=== PATIENT | female | born 1960 | race Caucasian/White ===

== ENCOUNTER → 2016-12-17 | Outpatient (CLI) | payer OTHER ==
[~2016-12-17] MED LIST: AMB10 PO; ASPEC81 PO; CETI10TA84 PO; CIPR-255 PO; ESTR2TAB PO; FENT25DI2 TD; FLX10 PO; HYG/25 PO; HYOS1TAB PO; ISOS30TA3 PO; ISOS60TA25 PO; LOSA1TAB38 PO; METO50TA16 PO; METO50TA17 PO; NTRGSL/4 UT; OMEP40CA PO; OMEP40CA41 PO; OXYC-57 PO; PANC6000 PO; PLV75 PO; POTA20TA13 PO; POTA20TA16 PO; RANI300T2 PO; ROSU20TA PO; ROSU40TA PO; ZOLP5TAB6 PO
[2016-12-17 14:26] LABS: BASO % 0.3 %; BASO ABS # 0.02 K/uL (0-0.2); COMPLETE YES; EOS % 2.2 %; HEMATOCRIT 36.4 % (37-47); IG% 0.3 %; LYMPH % 30.8 %; LYMPH ABS # 2.21 K/uL (1.2-3.4); MEAN CELL VOLUME 88.3 fL (80-100); MEAN CORPUSCULAR HEMOGLOBIN 30.1 pg (25-34); MEAN CORPUSCULAR HGB CONC 34.1 g/dl (32-36); MONO % 5.2 %; NEUT % 61.2 %; PLATELET COUNT 280 K/uL (130-400); RED BLOOD COUNT 4.12 M/uL (4.2-5.4); WHITE BLOOD COUNT 7.18 K/uL (4.8-10.8)
[2016-12-17 14:44] LABS: ALT/SGPT 18 U/L (12-78); AST/SGOT 10 U/L (15-37); BLOOD UREA NITROGEN 17 mg/dl (7-18); BUN/CREATININE RATIO 14.2 (10-20); C-REACTIVE PROTEIN 1.09 mg/dl (0-0.29); CALCIUM 8.8 mg/dl (8.5-10.1); CARBON DIOXIDE 27 mmol/L (21-32); CHLORIDE 102 mmol/L (98-107); GLUCOSE 87 mg/dl (70-99); POTASSIUM 3.5 mmol/L (3.5-5.1); SODIUM 139 mmol/L (136-145)
[2016-12-17 14:48] LABS: ALKALINE PHOSPHATASE 72 U/L (45-117)
[2016-12-21 23:31] LABS: IGA SERUM 219 mg/dL (81-463); TIS TRANS IGA 1 U/mL (<4)
== END | disposition home or self-care (01) ==
LOC: C.LAB 12:35
PROVIDERS: ATTEND Internal Medicine
DX: J38.7 Other diseases of larynx (principal)

== ENCOUNTER 2017-01-04 16:52 | Emergency (ER) | payer OTHER ==
[~2017-01-04] VITALS: Ht 167.6 cm; Wt 70.0 kg
[~2017-01-04 16:52] MED LIST changes: -CETI10TA84 PO; -CIPR-255 PO; -HYOS1TAB PO; -ISOS60TA25 PO; -METO50TA16 PO; -NTRGSL/4 UT; -OMEP40CA41 PO; -OXYC-57 PO; -POTA20TA13 PO; -POTA20TA16 PO; -ROSU20TA PO; -ZOLP5TAB6 PO
[2017-01-04 16:57] VITALS: TEMP 37.2; Ht 167.6 cm; Wt 70.0 kg
[2017-01-04] MEDS ORDERED: SODIUM CHLORIDE 0.9% 1000ML 1,000 ML IV STA (18:51)
[2017-01-04 19:20] LABS: BASO % 0.3 %; BASO ABS # 0.02 K/uL (0-0.2); COMPLETE YES; EOS % 1.8 %; HEMATOCRIT 35.2 % (37-47); IG% 0.1 %; LYMPH % 29.8 %; LYMPH ABS # 2.29 K/uL (1.2-3.4); MEAN CELL VOLUME 85.6 fL (80-100); MEAN CORPUSCULAR HEMOGLOBIN 30.2 pg (25-34); MEAN CORPUSCULAR HGB CONC 35.2 g/dl (32-36); MEAN PLATELET VOLUME 9.3 fL (7.4-10.4); MONO % 8.5 %; NEUT % 59.5 %; PLATELET COUNT 272 K/uL (130-400); RED BLOOD COUNT 4.11 M/uL (4.2-5.4); WHITE BLOOD COUNT 7.69 K/uL (4.8-10.8)
[2017-01-04 19:37] LABS: ALT/SGPT 14 U/L (12-78); BLOOD UREA NITROGEN 22 mg/dl (7-18); BUN/CREATININE RATIO 16.8 (10-20); CALCIUM 9.1 mg/dl (8.5-10.1); CARBON DIOXIDE 28 mmol/L (21-32); CHLORIDE 98 mmol/L (98-107); GLUCOSE 91 mg/dl (70-99); MAGNESIUM 1.9 mg/dl (1.8-2.4); POTASSIUM 2.7 mmol/L (3.5-5.1); SODIUM 137 mmol/L (136-145)
[2017-01-04 19:40] LABS: ALKALINE PHOSPHATASE 80 U/L (45-117); AST/SGOT 12 U/L (15-37)
[2017-01-04] MEDS ORDERED: METO50TA16 PO (19:45)
[2017-01-04] MEDS ORDERED: ISOS60TA25 PO (19:45)
[2017-01-04] MEDS ORDERED: NTRGSL/4 UT (19:45)
[2017-01-04] MEDS ORDERED: OMEP40CA41 PO (19:45)
[2017-01-04] MEDS ORDERED: HYOS1TAB PO (19:45)
[2017-01-04] MEDS ORDERED: CETI10TA84 PO (19:45)
[2017-01-04] MEDS ORDERED: ZOLP5TAB6 PO (19:45)
[2017-01-04] MEDS ORDERED: ROSU20TA PO (19:45)
[2017-01-04 20:01] LABS: URINE APPEARANCE CLOUDY (CLEAR); URINE BILIRUBIN NEG (NEG); URINE COLOR YELLOW; URINE EPITHELIAL CELL AUTO >30 /lpf (0-5); URINE NITRITE POS (NEG); URINE SPECIFIC GRAVITY 1.019 (1.000-1.030); UROBILINOGEN NEG (NEG); ZZUR CULT IF INDIC CLEAN CATCH YES
[2017-01-04 20:08] LABS: MANUAL MICROSCOPIC REQUIRED? NO; REVIEW REQ? NO
--- NOTE | 2017-01-04 20:17 | DIAGNOSTIC IMAGING REPORT ---
CT SCAN OF THE ABDOMEN AND PELVIS WITHOUT CONTRAST CLINICAL HISTORY: Lower abdominal pain, diarrhea, nausea. COMPARISON STUDY: 03/19/2008 TECHNIQUE: CT scan of the abdomen and pelvis was performed from the lung bases to the proximal femurs. Images are reviewed in the axial, sagittal, and coronal planes. IV contrast was not administered for this examination. CT DOSE: 278.78 mGy.cm FINDINGS: Lower chest: There is subtle interstitial thickening. There is no focal pulmonary consolidation. Liver: The unenhanced liver is normal in size, contour, and attenuation. There is no intrahepatic biliary ductal dilatation. Gallbladder: Surgically absent Spleen: Normal in size and attenuation. Pancreas: Unremarkable. Adrenal glands: Unremarkable. Kidneys: No renal, ureteral, or bladder calculi are visualized. Bowel: There are no transition zones indicate bowel obstruction. There is no evidence of acute diverticulitis. Peritoneum: There is no intraperitoneal free air or abdominal ascites. Vasculature: The abdominal aorta is normal in course and caliber. Adenopathy: None. Pelvic viscera: There is a 6 cm right adnexal soft tissue structure possibly representing a right ovarian mass. I do not with certainty identify a uterus. Please correlate with any surgical history of prior hysterectomy. Skeletal structures: No destructive osseous lesions are seen. IMPRESSION: 1. No evidence of bowel obstruction. No evidence of free air. 2. 6 cm right adnexal soft tissue structure. This does not have the typical appearance of the uterus and may represent a right ovarian mass. Clinical correlation with any history of prior gynecological surgery (does this patient have a history of hysterectomy?) is recommended. Pelvic ultrasonography should be considered in follow-up. Electronically signed by: Michael Fowler M.D. 01/04/2017 8:15 PM Dictated Date/Time: 01/04/2017 8:08 PM
[2017-01-04] MEDS ORDERED: CIPROFLOXACIN 500 MG TAB PO STA ×2 (21:43)
[2017-01-04] MEDS ORDERED: POTASSIUM CHLORIDE 10 MEQ TABCR PO STA (21:43)
[2017-01-04] MEDS ORDERED: CIPR-255 PO (21:48)
[2017-01-04] MEDS ORDERED: POTA20TA13 PO (21:48)
[2017-01-04 21:55] VITALS: BP 149/79; PULSE 78; O2SAT 96
--- NOTE | 2017-01-05 02:26 | EMERGENCY ROOM VISIT NOTE ---
History Report prepared by Antonio: Lilly Kilgore Under the Supervision of: Dr. Layton Starr M.D. First contact with patient: 18:50 Chief Complaint: DEHYDRATION Stated Complaint: DIARRHEA, CRAMPING, WEAKNESS Nursing Triage Summary: Pt states, "For the past 6 weeks I have been having problems with my irritable bowel and reflux. I went and saw Dr. Glass and he changed some of my meds. Yesterday my bowel movements started getting more formed. I have had problems in the past with low potassium and that's what I feel like. I had three stents put in my heart over the summer and had low potassium in April and was hospitalized. If I lay down I can feel my heart pounding in my ears." Lower abd cramping. History of Present Illness The patient is a 56 year old female who presents to the Emergency Room with complaints of constant lower abdominal cramping beginning 4 days ago. The patient reports that she has been having problems with her IBS for 4 days and went to the bathroom 5 times in one day but they have been less frequent over the last few days. She notes that these bowel movements worsen her abdominal cramping. The patient states that today she has weakness, muscle cramping, intermittent nausea, fever, chills, and a mild headache. The patient reports that this has happened to her before when her potassium was low. She notes that she was admitted in April for pneumonia and low potassium and states that she also has a history of heart attacks. The patient states that she has not been eating much because she does not want to go to the bathroom but has been drinking liquids. She reports that she has not had any recent abdominal imaging done but had blood work a few weeks ago that was fine but they suggested a colonoscopy. Pt denies LOC, diaphoresis, visual changes, neck pain, chest pain, breathing difficulties, vomiting, back pain, melena, hematochezia, urinary symptoms, numbness, lymphadenopathy, rash, or other complaints. She rates her cramping as a 5/10 in severity. Source of History: patient Onset: 4 days ago Position: abdomen (lower) Symptom Intensity: 5/10 Quality: cramping Timing: constant Modifying Factors (Worsening): other (going to the bathroom) Review of Systems See HPI for pertinent positives and negatives. A total of ten systems were reviewed and were otherwise negative. Past Medical & Surgical Medical Problems: (1) Abnormal EKG (2) Abnormal stress ECG with treadmill (3) CAD (coronary artery disease) (4) Claudication (5) Claudication in peripheral vascular disease (6) Fibromyalgia (7) Gastritis (8) HTN (hypertension) (9) Pancreatitis Family History Asthma Hypertension Kidney disease Social History Smoking Status: Current Every Day Smoker Drug Use: none Housing Status: lives with family Occupation Status: employed Current/Historical Medications Scheduled Aspirin (Aspirin EC Low Dose), 81 MG PO QAM Chlorthalidone (Hygroton), 25 MG PO QPM Ciprofloxacin Hcl (Cipro), 500 MG PO BID Clopidogrel Bisulfate (Clopidogrel), 75 MG PO QAM Estradiol (Estradiol), 1 TAB PO QPM Isosorbide Mononitrate Ext Rel (Imdur Ext Rel), 60 MG PO QAM Losartan Potassium (Cozaar), 1 TAB PO DAILY Metoprolol Tartrate (Lopressor) (Lopressor), 50 MG PO BID Nitroglycerin (Nitrostat), 0.4 MG UT PRN Omeprazole (Prilosec), 40 MG PO BID Pancrelipase (Lipase-Protease- (Creon), 76,000 UNITS PO AC Potassium Chloride Microencaps (Potassium Chloride Er), 1 TAB PO DAILY Ranitidine Hcl (Zantac), 300 MG PO HS Rosuvastatin Calcium (Crestor), 20 MG PO DAILY Scheduled PRN Cetirizine (Zyrtec), 10 MG PO DAILY PRN for ALLERGIC REACTION Fentanyl (Duragesic), 25 MCG TD [id number] PRN for PANCREATITIS FLARES Hyoscyamine Sulfate (Levsin), 0.125 MG PO QID PRN for Zolpidem Tartrate (Zolpidem Tartrate), 1 TAB PO HS PRN for Sleep Allergies Coded Allergies: Iodinated Diagnostic Agents (Verified Allergy, Unknown, BLOOD BLISTERS IN AREA OF INJECTION, 04/30/16) Physical Exam Vital Signs Date Time Temp Pulse Resp B/P Pulse Ox O2 Delivery O2 Flow Rate FiO2 01/04/17 21:55 78 16 149/79 96 01/04/17 21:16 72 16 127/78 96 Room Air 01/04/17 20:27 69 01/04/17 19:39 65 16 133/66 96 Room Air 01/04/17 16:57 37.2 77 18 151/80 97 Room Air Physical Exam GENERAL: Awake, alert, well-appearing, in no distress HENT: Normocephalic, atraumatic. Oropharynx unremarkable. EYES: Normal conjunctiva. Sclera non-icteric. NECK: Supple. No nuchal rigidity. FROM. No JVD. RESPIRATORY: Clear to auscultation. CARDIAC: Regular rate, normal rhythm. Extremities warm and well perfused. Pulses equal. ABDOMEN: Soft, non-distended. Lower abdominal tenderness. No rebound or guarding. No masses. RECTAL: Deferred. MUSCULOSKELETAL: Chest examination reveals no tenderness. The back is symmetrical on inspection without obvious abnormality. There is no CVA tenderness to palpation. No joint edema. LOWER EXTREMITIES: Calves are equal size bilaterally and non-tender. No edema. No discoloration. NEURO: Normal sensorium. No sensory or motor deficits noted. SKIN: No rash or jaundice noted. Medical Decision & Procedures ER Provider Diagnostic Interpretation: CT results as stated below per my review and radiologist interpretation CT SCAN OF THE ABDOMEN AND PELVIS WITHOUT CONTRAST TECHNIQUE: CT scan of the abdomen and pelvis was performed from the lung bases to the proximal femurs. Images are reviewed in the axial, sagittal, and coronal planes. IV contrast was not administered for this examination. CT DOSE: 278.78 mGy.cm FINDINGS: Lower chest: There is subtle interstitial thickening. There is no focal pulmonary consolidation. Liver: The unenhanced liver is normal in size, contour, and attenuation. There is no intrahepatic biliary ductal dilatation. Gallbladder: Surgically absent Spleen: Normal in size and attenuation. Pancreas: Unremarkable. Adrenal glands: Unremarkable. Kidneys: No renal, ureteral, or bladder calculi are visualized. Bowel: There are no transition zones indicate bowel obstruction. There is no evidence of acute diverticulitis. Peritoneum: There is no intraperitoneal free air or abdominal ascites. Vasculature: The abdominal aorta is normal in course and caliber. Adenopathy: None. Pelvic viscera: There is a 6 cm right adnexal soft tissue structure possibly representing a right ovarian mass. I do not with certainty identify a uterus. Please correlate with any surgical history of prior hysterectomy. Skeletal structures: No destructive osseous lesions are seen. IMPRESSION: 1. No evidence of bowel obstruction. No evidence of free air. 2. 6 cm right adnexal soft tissue structure. This does not have the typical appearance of the uterus and may represent a right ovarian mass. Clinical correlation with any history of prior gynecological surgery (does this patient have a history of hysterectomy?) is recommended. Pelvic ultrasonography should be considered in follow-up. Electronically signed by: Michael Fowler M.D. 01/04/2017 8:15 PM Dictated Date/Time: 01/04/2017 8:08 PM Laboratory Results 01/04/17 19:10 Red Blood Count 4.11, Mean Corpuscular Volume 85.6, Mean Corpuscular Hemoglobin 30.2, Mean Corpuscular Hemoglobin Concent 35.2, Mean Platelet Volume 9.3, Neutrophils (%) (Auto) 59.5, Lymphocytes (%) (Auto) 29.8, Monocytes (%) (Auto) 8.5, Eosinophils (%) (Auto) 1.8, Basophils (%) (Auto) 0.3, Neutrophils # (Auto) 4.58, Lymphocytes # (Auto) 2.29, Monocytes # (Auto) 0.65, Eosinophils # (Auto) 0.14, Basophils # (Auto) 0.02 01/04/17 19:10 Test 01/04/17 19:10 01/04/17 19:45 White Blood Count 7.69 K/uL (4.8-10.8) Red Blood Count 4.11 M/uL (4.2-5.4) Hemoglobin 12.4 g/dL (12.0-16.0) Hematocrit 35.2 % (37-47) Mean Corpuscular Volume 85.6 fL (80-100) Mean Corpuscular Hemoglobin 30.2 pg (25-34) Mean Corpuscular Hemoglobin Concent 35.2 g/dl (32-36) Platelet Count 272 K/uL (130-400) Mean Platelet Volume 9.3 fL (7.4-10.4) Neutrophils (%) (Auto) 59.5 % Lymphocytes (%) (Auto) 29.8 % Monocytes (%) (Auto) 8.5 % Eosinophils (%) (Auto) 1.8 % Basophils (%) (Auto) 0.3 % Neutrophils # (Auto) 4.58 K/uL (1.4-6.5) Lymphocytes # (Auto) 2.29 K/uL (1.2-3.4) Monocytes # (Auto) 0.65 K/uL (0.11-0.59) Eosinophils # (Auto) 0.14 K/uL (0-0.5) Basophils # (Auto) 0.02 K/uL (0-0.2) RDW Standard Deviation 40.1 fL (36.4-46.3) RDW Coefficient of Variation 12.7 % (11.5-14.5) Immature Granulocyte % (Auto) 0.1 % Immature Granulocyte # (Auto) 0.01 K/uL (0.00-0.02) Anion Gap 11.0 mmol/L (3-11) Est Creatinine Clear Calc Drug Dose 44.7 ml/min Estimated GFR () 52.7 Estimated GFR (Non- 45.5 BUN/Creatinine Ratio 16.8 (10-20) Calcium Level 9.1 mg/dl (8.5-10.1) Magnesium Level 1.9 mg/dl (1.8-2.4) Total Bilirubin 0.3 mg/dl (0.2-1) Direct Bilirubin < 0.1 mg/dl (0-0.2) Aspartate Amino Transf (AST/SGOT) 12 U/L (15-37) Alanine Aminotransferase (ALT/SGPT) 14 U/L (12-78) Alkaline Phosphatase 80 U/L (45-117) Total Protein 7.8 gm/dl (6.4-8.2) Albumin 3.6 gm/dl (3.4-5.0) Lipase 608 U/L (73-393) Urine Color YELLOW Urine Appearance CLOUDY (CLEAR) Urine pH 6.0 (4.5-7.5) Urine Specific Saline 1.019 (1.000-1.030) Urine Protein NEG (NEG) Urine Glucose (UA) NEG (NEG) Urine Ketones NEG (NEG) Urine Occult Blood NEG (NEG) Urine Nitrite POS (NEG) Urine Bilirubin NEG (NEG) Urine Urobilinogen NEG (NEG) Urine Leukocyte Esterase SMALL (NEG) Urine WBC (Auto) 10-30 /hpf (0-5) Urine RBC (Auto) 0-4 /hpf (0-4) Urine Hyaline Casts (Auto) 1-5 /lpf (0-5) Urine Epithelial Cells (Auto) >30 /lpf (0-5) Urine Bacteria (Auto) 4+ (NEG) Urine Test NEG (NEG) Laboratory results reviewed by me Medications Administered Medications (Trade) Dose Ordered Sig/[facility] Route Start Time Stop Time Status Last Admin Dose Admin Sodium Chloride (Nss 1000ml) 1,000 ml @ 999 mls/hr Q1H1M STAT IV 01/04/17 18:51 01/04/17 19:51 DC 01/04/17 19:30 999 MLS/HR Potassium Chloride (Klor-Con M10) 40 meq NOW STAT PO 01/04/17 21:43 01/04/17 21:45 DC 01/04/17 21:55 40 MEQ Ciprofloxacin (Cipro Tab) 500 mg NOW STAT PO 01/04/17 21:43 01/04/17 21:45 DC 01/04/17 21:55 500 MG Ciprofloxacin (Cipro Tab) 500 mg NOW STAT PO 01/04/17 21:43 01/04/17 21:45 DC 01/04/17 21:55 500 MG ECG Indication: weakness Rate (beats per minute): 64 Rhythm: normal sinus Findings: nonspecific-ST abn, no acute ischemic change, no ectopy, other (poor R wave progression) ED Course 1849: The patient was evaluated in room C11. A complete history and physical exam was performed. 1850: Sodium Chloride 1000 ml @ 999 mls/hr IV. 2142: Cipro Tab 500mg PO, Cipro Tab 500mg PO, Klor-Con M10 40meq PO. 2152: I reevaluated the patient. Discussed results and discharge instructions: She verbalized understanding and agreement. The patient is ready for discharge. Medical Decision Triage Nursing notes reviewed. The patient's presentation and history were concerning for abdominal pain, diarrhea and history of hypokalemia. Etiologies such as electrolyte abnormality, dehydration, appendicitis, diverticulitis, obstruction, inflammatory bowel disease, renal colic, PUD, biliary pathology, pancreatitis, mesenteric ischemia, aortic pathology, infections, genitourinary, UTI, perforated viscus, as well as others were entertained. The patient was evaluated. She declined analgesia. She was hydrated with normal saline. Blood work was obtained. Urinalysis obtained. The patient was sent to CT imaging for further analysis. ECG was unremarkable as above. The patient has hypokalemia and a UTI on blood work. Imaging reveals no evidence of bowel obstruction or colitis. No diverticulitis. The patient does have a right-sided pelvic mass. She does not have a significant amount of tenderness in this area but did have more tenderness on the left side. I believe this is an incidental finding that will need further evaluation. I did offer an ultrasound the patient wants to follow-up for this. The patient was given oral potassium. She will be prescribed potassium and I will have her continue this for 5 days and then have it rechecked. If she needs more potassium I did write for additional however she needs to have it rechecked before she continues. The patient will be prescribed Cipro pending her culture. The patient is feeling much better on reassessment and feels very comfortable with outpatient management. If she worsens in any way she will come back to the Emergency Room for reevaluation.I gave my usual and customary discussion regarding this issue. By the evaluation outlined above other emergent etiologies such as those listed in the differential, as well as others, were deemed relatively unlikely. The patient and were informed about the findings as listed above. All questions were answered and they were very pleased with the treatment. Return instructions were outlined and the patient was discharged in stable condition. The patient was referred to her PCP and INSPECTING MACHINE ADJUSTER for follow-up this week for a recheck of the current condition. The chart was completed utilizing [employer] Speech voice recognition software. Grammatical errors, random word insertions, pronoun errors, and incomplete sentences are an occasional consequence of this system due to software limitations, ambient noise, and hardware issues. Any formal questions or concerns about the content, text, or information contained within the body of this dictation should be directly addressed to the physician for clarification. Impression Primary Impression: Hypokalemia Additional Impressions: UTI (urinary tract infection) Pelvic mass Scribe Attestation The scribe's documentation has been prepared under my direction and personally reviewed by me in its entirety. I confirm that the note above accurately reflects all work, treatment, procedures, and medical decision making performed by me. Departure Information Dispostion Home / Self-Care Prescriptions Potassium Chloride Microencaps (POTASSIUM CHLORIDE ER) 20 Meq Tab 1 TAB PO DAILY, #10 TAB Prov: Layton Starr MD 01/04/17 Ciprofloxacin Hcl (CIPRO) 500 Mg Tab 500 MG PO BID, #8 TAB Prov: Layton Starr MD 01/04/17 Referrals Ucadra, Real T., D.O.Int.Med. (PCP) Forms HOME CARE DOCUMENTATION FORM, IMPORTANT VISIT INFORMATION, WORK / SCHOOL INSTRUCTIONS Patient Instructions My [facility] Additional Instructions Diagnosis: 1. Hypokalemia 2. UTI 3. Right sided pelvic mass Potassium 20 mEq daily for 5 days. Have your potassium rechecked this week. this may need to be continued for another 5 days but your primary physician needs to direct this. Ciprofloxacin(Cipro) 500mg: Take one pill twice daily for 5 days for your urine infection. All antibiotics can cause diarrhea. If this occurs and you feel worse or it does not resolve in 1-2 days follow up with your doctor or return to the Emergency Department as this could be signs of serious underlying problems. If you experience any pain in your tendons or any tendon injury return to the ER for re-evaluation. Any medication can cause an allergic reaction, stop the pills immediately and return to the ER for rash, hives, breathing difficulties, or swelling. Ibuprofen(Motrin, Advil) may be used for fever or pain. Use 600mg every six hours as needed. Take with food. Avoid using more than 2400mg in a 24 hour period. Do not use 2400mg per day for more than three consecutive days without physician direction. Prolonged inappropriate use can lead to stomach upset or ulcers. (AND/OR) Acetaminophen(Tylenol) may be used for fever or pain. Use 1000mg every six hours as needed. Avoid using more than 4000mg in a 24 hour period. Rest and drink plenty of fluids. Continue current medications. Return to the ER immediately for worsening or persistent abdominal pain, vomiting, fevers, back or flank pain, worsening of your condition, or as needed. Follow up with your primary physician within 2-3 days for a recheck of the current condition. Follow-up with [facility] INSPECTING MACHINE ADJUSTER as discussed. The number is listed below under Dr. Leo. Problem Qualifiers
--- NOTE | 2017-01-06 11:55 | Pharmacy Progress Note ---
ED Pharmacist Culture FollowUp Date of Service: Jan 06, 2017. Patient was sent home with a prescription for ciprofloxacin, which should cover the E.coli growing from the patient's urine culture.
[2017-02-11] MEDS ORDERED: POTA20TA16 PO (11:25)
[2017-02-22] MEDS ORDERED: OXYC-57 PO (12:22)
== END 2017-01-04 21:56 | disposition home or self-care (01) ==
LOC: C.EDB 16:53 → C.EDC 21:56
DX: E87.6 Hypokalemia (principal); N39.0 Urinary tract infection, site not specified; R19.09 Other intra-abdominal and pelvic swelling, mass and lump; K58.9 Irritable bowel syndrome, unspecified; R53.1 Weakness; R11.0 Nausea; I25.10 Atherosclerotic heart disease of native coronary artery without angina pectoris; I10 Essential (primary) hypertension; M79.7 Fibromyalgia; Z79.82 Long term (current) use of aspirin; Z79.899 Other long term (current) drug therapy; Z91.041 Radiographic dye allergy status; Z82.49 Family history of ischemic heart disease and other diseases of the circulatory system; Z82.5 Family history of asthma and other chronic lower respiratory diseases; Z84.1 Family history of disorders of kidney and ureter; F17.200 Nicotine dependence, unspecified, uncomplicated

== ENCOUNTER → 2017-01-14 | Outpatient (CLI) | payer OTHER ==
[~2017-01-14] MED LIST changes: -AMB10 PO; +CETI10TA84 PO; +CIPR-255 PO; -FLX10 PO; +HYOS1TAB PO; -ISOS30TA3 PO; +ISOS60TA25 PO; +METO50TA16 PO; -METO50TA17 PO; +NTRGSL/4 UT; -OMEP40CA PO; +OMEP40CA41 PO; +OXYC-57 PO; +POTA20TA13 PO; +POTA20TA16 PO; +ROSU20TA PO; -ROSU40TA PO; +ZOLP5TAB6 PO
[2017-01-14 13:42] LABS: BLOOD UREA NITROGEN 15 mg/dl (7-18); BUN/CREATININE RATIO 12.8 (10-20); CALCIUM 9.6 mg/dl (8.5-10.1); CARBON DIOXIDE 24 mmol/L (21-32); CHLORIDE 104 mmol/L (98-107); GLUCOSE 94 mg/dl (70-99); POTASSIUM 3.8 mmol/L (3.5-5.1); SODIUM 139 mmol/L (136-145)
== END | disposition home or self-care (01) ==
LOC: C.LAB1850 11:26
PROVIDERS: ATTEND Family Medicine
DX: E87.6 Hypokalemia (principal); R10.2 Pelvic and perineal pain

== ENCOUNTER → 2017-01-14 | Outpatient (CLI) | payer OTHER | END | disposition home or self-care (01) | LOC: C.PAPS 14:22 | PROVIDERS: ATTEND Obstetrics & Gynecology | DX: R10.2 Pelvic and perineal pain (principal) ==

== ENCOUNTER → 2017-02-15 | Outpatient (CLI) | payer OTHER ==
[~2017-02-15] MED LIST changes: -CIPR-255 PO; -ESTR2TAB PO; -HYOS1TAB PO; -POTA20TA13 PO; -RANI300T2 PO
[2017-02-15 18:31] LABS: ESTIMATED AVERAGE GLUCOSE 137 mg/dl; HA1C FLAG Normal (Normal)
[2017-02-15 18:32] LABS: ALT/SGPT 19 U/L (12-78); AST/SGOT 15 U/L (15-37); BLOOD UREA NITROGEN 24 mg/dl (7-18); BUN/CREATININE RATIO 24.4 (10-20); CALCIUM 9.3 mg/dl (8.5-10.1); CARBON DIOXIDE 31 mmol/L (21-32); CHLORIDE 101 mmol/L (98-107); GLUCOSE 83 mg/dl (70-99); MAGNESIUM 2.4 mg/dl (1.8-2.4); POTASSIUM 3.2 mmol/L (3.5-5.1); SODIUM 140 mmol/L (136-145)
[2017-02-15 18:43] LABS: ALKALINE PHOSPHATASE 77 U/L (45-117); THYROID STIMULATING HORMONE 0.723 uIu/ml (0.300-4.500)
== END | disposition home or self-care (01) ==
LOC: C.LABPBG 15:53
PROVIDERS: ATTEND Internal Medicine
DX: E87.6 Hypokalemia (principal); I10 Essential (primary) hypertension

== ENCOUNTER 2017-02-22 07:19 | Observation (INO) | payer OTHER ==
[2017-02-11 11:25] VITALS: BMI 25.0
--- NOTE | 2017-02-11 12:11 | PAT Medication Instructions ---
Service Date Feb 11, 2017. Current Home Medication List Aspirin (Aspirin EC Low Dose), 81 MG PO QAM Cetirizine (Zyrtec), 10 MG PO DAILY PRN for ALLERGIC REACTION Chlorthalidone (Hygroton), 25 MG PO QPM Clopidogrel Bisulfate (Clopidogrel), 75 MG PO QAM Fentanyl (Duragesic), 25 MCG TD SEE NOTE PRN for PANCREATITIS FLARES Isosorbide Mononitrate Ext Rel (Imdur Ext Rel), 60 MG PO QAM Losartan Potassium (Cozaar), 1 TAB PO QAM Metoprolol Tartrate (Lopressor) (Lopressor), 50 MG PO BID Nitroglycerin (Nitrostat), 0.4 MG UT PRN Omeprazole (Prilosec), 40 MG PO BID Pancrelipase (Lipase-Protease- (Creon), 76,000 UNITS PO AC Potassium Ext Rel (Klor-Con), 20 MEQ PO QAM Rosuvastatin Calcium (Crestor), 20 MG PO QPM Zolpidem Tartrate (Zolpidem Tartrate), 1 TAB PO HS PRN for Sleep Medication Instructions For Your Scheduled Surgery - Hold the following medications PER CARDIOLOGY INSTRUCTIONS (STOP 5-7DAYS PRIOR TO SURGERY) Clopidogrel Bisulfate (Clopidogrel), 75 MG PO QAM - Continue as directed: Fentanyl (Duragesic), 25 MCG TD SEE NOTE PRN for PANCREATITIS FLARES Nitroglycerin (Nitrostat), 0.4 MG UT PRN - Hold the following medications the morning of surgery: Cetirizine (Zyrtec), 10 MG PO DAILY PRN for ALLERGIC REACTION Losartan Potassium (Cozaar), 1 TAB PO QAM Pancrelipase (Lipase-Protease- (Creon), 76,000 UNITS PO AC Potassium Ext Rel (Klor-Con), 20 MEQ PO QAM - Take the following medications the morning of surgery with a sip of water OTHERWISE NOTHING TO EAT OR DRINK AFTER MIDNIGHT: Aspirin (Aspirin EC Low Dose), 81 MG PO QAM Isosorbide Mononitrate Ext Rel (Imdur Ext Rel), 60 MG PO QAM Metoprolol Tartrate (Lopressor) (Lopressor), 50 MG PO BID Omeprazole (Prilosec), 40 MG PO BID - Take the following medications as scheduled the night before surgery: Chlorthalidone (Hygroton), 25 MG PO QPM Metoprolol Tartrate (Lopressor) (Lopressor), 50 MG PO BID Omeprazole (Prilosec), 40 MG PO BID Zolpidem Tartrate (Zolpidem Tartrate), 1 TAB PO HS PRN for Sleep Rosuvastatin Calcium (Crestor), 20 MG PO QPM If you have any questions please call us at [phone] or [phone] or [phone]
[2017-02-22] VITALS (8 sets, daily range): BP systolic 107–125; BP diastolic 56–72; PULSE 49–63; TEMP 36.5–37; O2SAT 94–100; Ht 165.1 cm; Wt 70.5 kg
[~2017-02-22] VITALS: Ht 165.1 cm; Wt 70.5 kg
[~2017-02-22 07:19] MED LIST changes: +LACTATED RINGER'S 1000ML 1,000 ML IV SCH; -OXYC-57 PO
[2017-02-22] MEDS ORDERED: HYDROmorphone INJ 1 MG/ML SYR IV PRN (08:45)
[2017-02-22] MEDS ORDERED: EpHEDrine SULFATE INJ 50 MG/ML AMP IV PRN (08:45)
[2017-02-22] MEDS ORDERED: ONDANSETRON INJ 2 MG/ML 2 ML VIAL IV PRN ×2 (08:45→12:30)
[2017-02-22] MEDS ORDERED: ATROPINE SULFATE 0.1 MG/ML 5ML SYR IV PRN (08:45)
[2017-02-22] MEDS ORDERED: PROMETHAZINE HCL INJ 6.25 MG in SODIUM CHLORIDE 0.9% 50ML 50 ML IV PRN (08:45)
[2017-02-22] MEDS ORDERED: MIDAZOLAM HCL 1 MG/ML 2ML VIAL ONE (09:43)
[2017-02-22] MEDS ORDERED: ROCURONIUM BROMIDE 10 MG/ML 5 ML VIAL ONE ×2 (09:43→11:46)
[2017-02-22] MEDS ORDERED: LARYING-O-JET KIT (LTA) EXT ONE ×2 (09:43)
[2017-02-22] MEDS ORDERED: PROPOFOL IV EMULSION 10 MG/ML 20 ML VIAL IV ONE (09:43)
[2017-02-22] MEDS ORDERED: FENTANYL CITRATE INJ 50 MCG/1 ML 2 ML VIAL ONE (09:43)
[2017-02-22] MEDS ORDERED: LIDOCAINE HCL 2% 2 ML VIAL (20MG/ML) ONE (09:43)
[2017-02-22] MEDS ORDERED: METHYLENE BLUE 0.5% 10 ML VIAL ONE (10:12)
[2017-02-22] MEDS ORDERED: BUPIVACAINE 0.5 % 5 MG/1 ML MPF 30ML VIAL ONE (10:12)
--- NOTE | 2017-02-22 10:14 | History & Physical Bridge Note ---
H&P Re-Evaluation Bridge Note: I have examined the patient, reviewed the History & Physical and in the interval since the performance of the History & Physical I have noted the following changes of clinical significance: No changes noted
[2017-02-22] MEDS ORDERED: GLYCOPYRROLATE INJ 0.2 MG/ML VIAL ONE (11:06)
[2017-02-22] MEDS ORDERED: NEOSTIGMINE METHYLSULFATE 5 MG/5 ML SYR ONE (11:46)
[2017-02-22] MEDS ORDERED: TISSEEL FIBRIN SEALANT 4ML TOP ONE (11:47)
[2017-02-22] MEDS ORDERED: EpHEDrine SULFATE 50MG/5ML SYR ONE (11:49)
--- NOTE | 2017-02-22 12:20 | [facility] Post Operative Brief Note ---
Immediate Operative Summary Operative Date Feb 22, 2017. Pre-Operative Diagnosis Ovarian Cyst Post-Operative Diagnosis Same as preop Procedure(s) Performed Laparoscopic Bilateral Salpingo-Oophorectomy Robot Assist; Cystoscopy Surgeon Dr. Leo Supervisor Public Message Service Surgeon(s) none Estimated Blood Loss 10 ML Specimens A. Bilateral Fallopian Tubes and Ovaries Drains [place] Anesthesia General Complication(s) None Disposition Recovery Room / PACU
--- NOTE | 2017-02-22 12:21 | Discharge Instructions ---
Discharge Instructions Date of Service Feb 22, 2017. Admission Reason for Admission: Female Pelvic Pain Discharge Discharge Diagnosis / Problem: pelvic mass Discharge Goals Goal(s): Routine recovery after surgery Activity Recommendations Activity Limitations: per Instructions/Follow-up section . Instructions / Follow-Up Instructions / Follow-Up ACTIVITY RECOMMENDATIONS: * Rest the first 2-3 days. You should be back to your normal activity levels by day 3. * No heavy lifting for 2 weeks. * No intercourse, tampons or douching for 1-2 weeks. * You may shower the next day. * Do not drive anytime that you are taking narcotic pain medicines. RETURN TO SCHOOL/WORK: * May return to school or work after 2-3 days. DIET: Nausea may occur in the immediate post-operative period. If so, take clear liquids such as tea, bouillon, apple juice until all nausea has subsided, then resume usual diet. MEDICATIONS: Resume previous medications unless instructed otherwise by your surgeon. Ibuprofen 200mg 2-3 tablets every 4-6 hours as needed -- OR -- Aleve 2 tablets every 8-12 hours as needed for post-operative discomfort Medications are over the counter. Tylenol may be used if above medications are contraindicated or not preferred. Medication should be taken with food or milk. Do not take on an empty stomach. SPECIAL CARE INSTRUCTIONS: * Check temperature twice daily for one week. report any elevation over 101 degrees. * You may experience some vagina spotting and/or bleeding. This is normal for 1 -2 weeks and should not be heavier than a normal period. If it is unusual in amount, call your physician. * Post-operative discomfort may consist of a sore throat, a "bloated" feeling and pain in the shoulders. these are normal symptoms, which usually only last for 2-3 days. * Remove band-aids tomorrow and shower. There is no need to replace band-aids unless there is drainage or discomfort. FOLLOW UP VISIT: Call your doctor's office for a post-operative 2 week visit if not already scheduled. Current Hospital Diet Patient's current hospital diet: Discharge Diet Recommended Diet: Regular Diet Procedures Procedures Performed: Laparoscopic Bilateral Salpingo-Oophorectomy Robot Assist; Cystoscopy Pending Studies Studies pending at discharge: no Laboratory Results Hemoglobin A1c Test 02/15/17 15:56 Range/Units Estimated Average Glucose 137 mg/dl Hemoglobin A1c 6.4 H 4.5-5.6 % Medical Emergencies . Who to Call and When: Medical Emergencies: If at any time you feel your situation is an emergency, please call 911 immediately. . Non-Emergent Contact Non-Emergency issues call your: Primary Care Provider . . "Provider Documentation" section prepared by Layton Leo. VTE Core Measure Inpt VTE Proph given/why not?: Melita David, SCD's
[2017-02-22] MEDS ORDERED: OXYC-57 PO (12:22)
[2017-02-22] MEDS ORDERED: IV FLUIDS COMPLETED PRN (12:30)
[2017-02-22] MEDS ORDERED: PROMETHAZINE HCL INJ 25 MG in SODIUM CHLORIDE 0.9% 50ML 50 ML IV PRN (12:30)
[2017-02-22] MEDS ORDERED: OXYCODONE/ACETAMINOPHEN 5-325 TAB PO PRN (12:30)
[2017-02-22] MEDS: FENTANYL CITRATE INJ 50 MCG/1 ML 2 ML VIAL IV PRN ×2 (12:54→12:59)
--- NOTE | 2017-02-22 12:56 | Medical Student: [facility] ---
Immediate Operative Summary Operative Date Feb 22, 2017. Pre-Operative Diagnosis Right complex ovarian cyst Post-Operative Diagnosis same Procedure(s) Performed 1. Laparoscopic bilateral salpingo-oophrectomy 2. cystoscopy Surgeon Dr. Leo Bank Cashier Surgeon(s) none Estimated Blood Loss 10mL Findings omental adhesions, surgically absent uterus; 5cm cyst right ovary, simple cyst left ovary Specimens Bilateral ovaries and fallopian tubes Drains Murcia catheter Anesthesia General with endotracheal tube Complication(s) None Disposition Recovery Room / PACU
--- NOTE | 2017-02-22 13:09 | OPERATIVE REPORT ---
DATE OF OPERATION: 02/22/2017 PREOPERATIVE DIAGNOSIS: Pelvic mass, right side. POSTOPERATIVE DIAGNOSIS: Right ovarian complex cyst, benign appearing. PROCEDURE: Laparoscopic bilateral salpingo-oophorectomy robot assist with lysis of adhesions and cystoscopy. SURGEON: Dr. Leo. PROPERTY DISPOSAL MANAGER: None. ESTIMATED BLOOD LOSS: 10 mL. SPECIMENS: Bilateral fallopian tubes and ovaries. 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 DRAINS: Murcia catheter. ANESTHETIC: General. COMPLICATIONS: None. DISPOSITION: Recovery room. PROCEDURE: Bruna was given a general anesthetic, prepped and draped in dorsolithotomy position in [facility]. Care was taken on positioning. Murcia catheter placed in the bladder and sponge stick with a sponge in the vagina. Gloves changed and a supraumbilical incision made with scalpel. Using open Ladarius cutdown direct entry technique, we made entry into the peritoneal cavity. Blunt-tipped Ladarius trocar then placed. Balloon inflated and CO2 gas inserted into the abdomen. FINDINGS: Upper abdomen had some anterior abdominal wall adhesions with the prior abdominal hysterectomy. This was consistent with that. Deep Trendelenburg was obtained. I was able to visualize the right-sided mass. These were covered by adhesions and I was not able to visualize the left ovary as these were covered by adhesions as well. Because of extensive adhesions we decided on robotic use. We placed 2 robotic ports, 1 in the left, 1 in the right and left upper quadrant 8 mm robotic port as well for an accessory port. At this stage, we then docked the robot. Arm #1 was monopolar ruperto, arm #2 bipolar [place]. Using the accessory port for a nontraumatic grasper, we dealt with the adhesions, first carefully dissecting these away using electrosurgery as needed to release all the anterior omental adhesions to the anterior abdominal wall. These were then continued around to remove the adhesions over the right ovary. It was visualized, it was multiseptic although appeared benign and smooth. Same process on the left side. The colon adhesions were not directly related to the ovary, more they were flimsy adhesions and omental adhesions as well. These were easily lysed away. Once this was done, I was able to visualize the left ovary was normal, both left and right ureters seemed to follow a normal course. I was able to make a window then into the broad ligament, isolated the ovarian artery and vein, coagulating this with bipolar [place] and then cutting with monopolar ruperto. The right ovary was then fully removed by skeletonizing along its lateral attachments staying away from the ureter and coagulating any distal blood supply remnant. Same process was continued on the left. Both specimens were placed in the pelvis. Methylene blue was then given at this time. Hemostasis was excellent. I decided to perform cystoscopy. Murcia catheter removed. Cystoscope placed. The bladder appeared normal, no damage, good strong jets of blue dye from left and right ureter openings. Cystoscope removed, Murcia catheter replaced and then I was able to use a 5 mm laparoscope since the robot was undocked at this stage and instruments are removed and placed the 2 specimens in the surgical bag through the umbilical port. These were then removed by pulling them up through the port and then removing them the following way. We drained the cyst as it was too large in the bag, so there was no spill into the peritoneal cavity. It was largely mucinous material and then I was able to fully remove the bag. Again no spill in the peritoneal cavity. At this stage, we then used a sponge to plug the umbilical port hole and were able to visualize the pelvis. Hemostasis was excellent. We did apply Tisseel 4 mL and then all ports were irrigated generously, injected with 0.5% Marcaine and then fascia was closed in the midline with 0 Vicryl, several [id number] sutures, and then subcutaneous fat irrigated and closed with 0 Vicryl, 4-0 subcuticular Monocryl closures and Dermabond. Sponge and instrument counts correct at the end of procedure. I attest to the content of the Intraoperative Record and any orders documented therein. Any exceptio ns are noted below.
--- NOTE | 2017-02-22 14:17 | Anesthesiology Progress Note ---
Anesthesia Post Op Note Date & Time Feb 22, 2017 at 14:16 Vital Signs Pain Intensity: 6 Vital Signs Past 12 Hours Date Time Temp Pulse Resp B/P Pulse Ox O2 Delivery O2 Flow Rate FiO2 02/22/17 13:30 65 16 99/61 99 Mask 5 02/22/17 13:20 36 62 16 104/56 100 Mask 5 02/22/17 13:10 62 16 103/53 99 Mask 5 02/22/17 13:00 62 16 111/57 100 Mask 5 02/22/17 12:50 63 17 116/58 100 Mask 10 02/22/17 12:40 63 21 115/58 100 Mask 10 02/22/17 12:30 36 60 16 115/62 100 Mask 10 02/22/17 08:05 36.7 49 20 125/56 97 Room Air Notes Mental Status: alert / awake / arousable, participated in evaluation Pt Amnestic to Procedure: Yes Nausea / Vomiting: adequately controlled Pain: adequately controlled Airway Patency, RR, SpO2: stable & adequate BP & HR: stable & adequate Hydration State: stable & adequate Anesthetic Complications: no major complications apparent Patient to be 23hr obs on monitored floor due to her recent drug eluting stents. She is hemodynamically stable and awake post operatively.
[2017-02-22] MEDS ORDERED: ZOLPIDEM TARTRATE 5 MG TAB PO PRN (15:15)
[2017-02-22] MEDS: SODIUM CHLORIDE 0.9% 1000ML 1,000 ML IV SCH ×2 (15:51→18:36)
--- NOTE | 2017-02-22 15:59 | Medical Consult ---
Consultation Date of Consultation: Feb 22, 2017. Attending Physician: Mishel Leo M.D. Reason for Consultation: Medical management History of Present Illness This patient is a 56-year-old female that underwent a laparoscopic BSO today for a history of a large right ovarian mass that was diagnosed approximately 1 month ago. The patient is currently complaining of mild to moderate abdominal pain. She has not yet passed gas since the surgery. She is curious to see if she can get her Murcia catheter out. The patient does have a significant history of coronary artery disease. She had 3 stents placed in her RCA, LAD and left circumflex in May 2016 after suffering an NH. She is typically on aspirin and Plavix. Her Plavix has been held 5 days prior to her procedure. She denies any recent anginal symptoms such as chest pain or pressure. No shortness of breath at rest or with exertion. She denies any dizziness or heart palpitations. She is curious to see whether she can be restarted on her Plavix. No known complications reported during the surgery. Past Medical/Surgical History Medical Problems: Coronary artery disease status post 3 stents placed in May 2016 as noted above Peripheral vascular disease-75% stenosis of the right common iliac artery and 50 % stenosis of the left common iliac artery IBS Obstructive sleep apnea-questionable compliance with CPAP at home Fibromyalgia Chronic pancreatitis IVS Surgical history Status post laparoscopic cholecystectomy Status post 1 Family History Asthma Hypertension Kidney disease Social History Smoking Status: Current Every Day Smoker Drug Use: none Housing Status: lives with family Occupation Status: employed Allergies Coded Allergies: Iodinated Diagnostic Agents (Verified Allergy, Unknown, BLOOD BLISTERS IN AREA OF INJECTION, 02/22/17) Home Medications Aspirin 81 mg daily Zyrtec 10 mg daily Chlorthalidone 25 mg daily Plavix 75 mg daily Imdur ER 60 mg daily Cozaar 100 mg daily Prilosec 40 mg twice daily Percocet 1 tab every 4 hours as needed Creon 76,000 units daily Potassium chloride 20 mg once daily Crestor 40 mg at night Ambien 5 mg at night as needed Metoprolol 50 mg twice daily Ranitidine 300 mg at night Current Inpatient Medications Current Inpatient Medications Medications (Trade) Dose Ordered Sig/Rosalia Route Start Time Stop Time Status Last Admin Dose Admin Sodium Chloride (Nss 1000ml) 1,000 ml @ 125 mls/hr Q8H IV 02/22/17 12:19 02/23/17 12:18 Ondansetron HCl (Zofran Inj) 4 mg Q6H PRN IV 02/22/17 12:30 02/23/17 12:29 Oxycodone/ Acetaminophen (Percocet 5-325mg Tab) 1 tab Q4H PRN PO 02/22/17 12:30 02/23/17 12:29 Oxycodone/ Acetaminophen 2 tab 2 tab Q4H PRN PO 02/22/17 12:30 02/23/17 12:29 Promethazine HCl/ Sodium Chloride (Phenergan Inj/ Nss 50ml) 51 ml @ 204 mls/hr Q4H PRN IV 02/22/17 12:30 02/23/17 12:29 Miscellaneous (Iv Fluids Completed) 1 ea PRN PRN N/A 02/22/17 12:30 02/22/18 12:29 Aspirin (Ecotrin Tab) 81 mg QAM PO 02/23/17 09:00 03/25/17 08:59 UNV Isosorbide Mononitrate (Imdur Ext Rel Tab) 60 mg QAM PO 02/23/17 09:00 03/25/17 08:59 UNV Losartan Potassium (coZAAR TAB) 100 mg QAM PO 02/23/17 09:00 03/25/17 08:59 UNV Metoprolol Tartrate (Lopressor Tab) 50 mg BID PO 02/22/17 21:00 03/24/17 20:59 UNV Potassium Chloride (Klor-Con Tab) 20 meq QAM PO 02/23/17 09:00 03/25/17 08:59 UNV Rosuvastatin Calcium (Crestor Tab) 40 mg QPM PO 02/22/17 21:00 03/24/17 20:59 UNV Zolpidem Tartrate (Ambien Tab) 5 mg HS PRN PO 02/22/17 15:15 03/24/17 15:14 UNV Ranitidine HCl (zANTac TAB) 300 mg HS PO 02/22/17 21:00 03/24/17 20:59 UNV Pantoprazole Sodium (Protonix Tab) 40 mg BID PO 02/22/17 21:00 03/24/17 20:59 UNV Review of Systems 10 system review performed and negative unless noted in HPI or below Physical Exam Date Time Temp Pulse Resp B/P Pulse Ox O2 Delivery O2 Flow Rate FiO2 02/22/17 15:39 36.6 63 20 125/72 98 Room Air 02/22/17 14:45 115/68 02/22/17 14:20 123/61 02/22/17 14:00 36.5 63 20 107/64 100 Nasal Cannula 2.0 02/22/17 13:30 65 16 99/61 99 Mask 5 02/22/17 13:20 36 62 16 104/56 100 Mask 5 02/22/17 13:10 62 16 103/53 99 Mask 5 02/22/17 13:00 62 16 111/57 100 Mask 5 02/22/17 12:50 63 17 116/58 100 Mask 10 02/22/17 12:40 63 21 115/58 100 Mask 10 02/22/17 12:30 36 60 16 115/62 100 Mask 10 02/22/17 08:05 36.7 49 20 125/56 97 Room Air General Appearance: + mild distress (in mild discomfort) Head: normocephalic Eyes: EOMI ENT: + pertinent finding (oral mucosa slightly dry) Neck: no JVD Respiratory/Chest: lungs clear Cardiovascular: regular rate, rhythm, no murmur Abdomen/GI: soft, + pertinent finding (bowel sounds hypoactive. Incisions are clean, dry and intact. Diffuse mild tenderness noted. No focal tenderness.) Extremities/Musculoskelatal: no calf tenderness, no pedal edema Neurologic/Psych: no motor/sensory deficits, oriented x 3 Skin: warm/dry Laboratory Results Last 24 Hours Test 02/22/17 07:55 02/22/17 08:02 02/22/17 13:32 Sodium Level 142 mmol/L Potassium Level 3.0 mmol/L Chloride Level 105 mmol/L Carbon Dioxide Level 28 mmol/L Anion Gap 9.0 mmol/L Bedside Glucose 107 mg/dl 100 mg/dl Assessment & Plan 56-year-old female with a history of a large right ovarian mass status post laparoscopic BSO today. -pain management, DVT prophylaxis, PT per primary team Coronary artery disease, NH status post cardiac stenting 3 in May 2016 -Agree with telemetry monitoring overnight -Obtain EKG now -Continue metoprolol 50 mg BID--ordered -Continue ASA 81 mg daily -Would recommend restarting Plavix NEDRA. I will defer to the primary team to order this when they are comfortable -Continue Crestor 40 mg daily. Ordered first dose tonight -Continue other medical management with blood pressure hold parameters: Imdur ER 60 mg daily, Cozaar 100 mg daily -Recommend holding chlorthalidone due to postoperative state and borderline hypotension. If patient remains hypotensive tomorrow, also hold Cozaar Chronic pancreatitis -Continue Creon 76,000 units in the morning History of obstructive sleep apnea-the patient does report using CPAP currently at home. She is refusing this in the hospital. -CPAP is ordered. Patient has the right to refuse History of GERD -Patient's home dose of Prilosec 40 mg twice daily will be changed to pantoprazole 40 mg twice daily while in house. First dose tonight. -Continue ranitidine 300 mg at night. Thank you for this consultation. We will continue to follow. This chart was completed in part utilizing [employer] Speech Voice Recognition software. Attempts were made to minimize the grammatical errors, random word insertions, pronoun errors and incomplete sentences. Any formal questions or concerns about the content, text or information contained within the body of this dictation should be directly addressed to the provider for clarification. Additional Copies To Olman Bray M.D.; Juwan Trinh M.D. History Physician Swimming Professor Supervision Note: I interviewed and examined the patient. Discussed with REESE Meier and agree with findings and plan as documented in the note. Any exceptions or clarifications are listed here: Patient doing well the time I saw her. She has eaten postoperatively and denies nausea or vomiting. Her pain is controlled. She denies chest pains or shortness of breath. Her potassium has been replaced. She reports her hypokalemia is how her ovarian mass was discovered as part of her workup for diarrhea and states that chlorthalidone has not been stopped because of feeling thing that helps keep her blood pressure down. Vitals reviewed No acute distress, sitting in chair Bradycardia with regular rhythm, no murmurs gallops or rubs Clear to auscultation bilaterally, no wheezes crackles or rhonchi Abdomen positive bowel sounds, soft, appropriately tender at incision sites without guarding or rebound Extremities without edema Skin no rashes ECG postoperatively reviewed and shows some U waves consistent with her hypokalemia, otherwise okay 56-year-old female with a right ovarian mass, history of CAD status post drug- eluting stents less than 1 year ago, hypertension, hypokalemia, here status post laparoscopic oophorectomy. -Restart Plavix tomorrow if okay with gynecology -Pain control and postoperative management as per gynecology -Continue aspirin, and/or, Cozaar, and chlorthalidone for CAD and hypertension -Suggested to patient that she will likely need to increase her potassium supplement 20 mEq twice a day and have her PCP follow her potassium levels as an outpatient -Repeat ECG again in the morning and continue on telemetry -Check PRP in the morning -Encouraged CPAP use while in the hospital and patient agrees -DVT prophylaxis: Ordered SCDs for while in bed Documented By: Trina Wiggins
[2017-02-22] MEDS ORDERED: COUGH DROP (SUGAR FREE) LOZ 24 LOZ/1 BOX ONE (16:20)
[2017-02-22] MEDS ORDERED: NURSING DECISION MEDICATION ORDER SCH (16:30)
[2017-02-22] MEDS ORDERED: COUGH DROP (SUGAR FREE) LOZ 24 LOZ/1 BOX PO PRN (16:45)
[2017-02-22] MEDS: OXYCODONE/ACETAMINOPHEN 5-325 TAB PO PRN ×2 (16:59→21:29)
[2017-02-22] MEDS ORDERED: POTASSIUM CHLORIDE 20 MEQ TABCR PO STA (18:27)
[2017-02-22] MEDS ORDERED: NURSING VERBAL MED ORDER ONE (18:45)
[2017-02-22] MEDS: PANTOprazole SOD 40 MG TAB PO SCH (19:52)
[2017-02-22] MEDS: METOPROLOL TARTRATE 50 MG TAB PO SCH (19:52)
[2017-02-22] MEDS ORDERED: ROSUVASTATIN CALCIUM 20 MG TAB PO SCH (21:00)
[2017-02-22] MEDS ORDERED: RANITIDINE HCL 150 MG TAB PO SCH (21:00)
[2017-02-23 00:05] VITALS: BP 92/52; PULSE 58; TEMP 36.5; O2SAT 98
[2017-02-23] MEDS: OXYCODONE/ACETAMINOPHEN 5-325 TAB PO PRN ×2 (01:45→05:52)
[2017-02-23 03:48] VITALS: BP 91/50; PULSE 68; TEMP 36.9; O2SAT 92
[2017-02-23 04:00] VITALS: O2SAT 92
[2017-02-23 06:31] LABS: BASO % 0.2 %; BASO ABS # 0.02 K/uL (0-0.2); COMPLETE YES; EOS % 1.5 %; IG% 0.3 %; LYMPH % 12.3 %; LYMPH ABS # 1.43 K/uL (1.2-3.4); MEAN CORPUSCULAR HEMOGLOBIN 30.1 pg (25-34); MEAN CORPUSCULAR HGB CONC 34.2 g/dl (32-36); MEAN PLATELET VOLUME 9.4 fL (7.4-10.4); MONO % 5.6 %; NEUT % 80.1 %; PLATELET COUNT 256 K/uL (130-400); RED BLOOD COUNT 4.09 M/uL (4.2-5.4); WHITE BLOOD COUNT 11.64 K/uL (4.8-10.8)
[2017-02-23 07:07] LABS: BUN/CREATININE RATIO 11.6 (10-20); CALCIUM 8.9 mg/dl (8.5-10.1); CREATININE 1.1 mg/dl (0.60-1.20); MAGNESIUM 2.5 mg/dl (1.8-2.4); POTASSIUM 3.5 mmol/L (3.5-5.1)
--- NOTE | 2017-02-23 07:48 | Progress Note ---
Progress Note Date of Service Feb 23, 2017. Progress Note POD#1 from laparoscopic BSO and lysis of adhesions. S: Well, ambulating, tolerating oral diet, oral pain meds, no ext pain. O: Incisions clean. Ext neg, abdo soft. A+P: Day 1, meets surgical criteria for D/C. Await medical team ange. NINA
--- NOTE | 2017-02-23 08:16 | Progress Note ---
Subjective Date of Service: Feb 23, 2017. Subjective Pt evaluation today including: conversation w/ patient, chart review, lab review, review of studies Problem List Medical Problems: (1) Myalgia Status: Acute Review of Systems All Other Systems: Reviewed and Negative Objective Vital Signs Date Time Temp Pulse Resp B/P Pulse Ox O2 Delivery O2 Flow Rate FiO2 02/23/17 04:00 92 Room Air 02/23/17 03:48 36.9 68 16 91/50 92 Room Air 02/23/17 00:05 36.5 58 16 92/52 98 Room Air 02/22/17 23:59 Room Air 02/22/17 20:00 Room Air 02/22/17 19:32 37.0 61 20 122/68 94 Room Air 02/22/17 16:39 60 20 110/65 100 Room Air 02/22/17 16:00 Room Air 02/22/17 15:39 36.6 63 20 125/72 98 Room Air 02/22/17 14:45 115/68 02/22/17 14:20 123/61 02/22/17 14:00 36.5 63 20 107/64 100 Nasal Cannula 2.0 02/22/17 13:30 65 16 99/61 99 Mask 5 02/22/17 13:20 36 62 16 104/56 100 Mask 5 02/22/17 13:10 62 16 103/53 99 Mask 5 02/22/17 13:00 62 16 111/57 100 Mask 5 02/22/17 12:50 63 17 116/58 100 Mask 10 02/22/17 12:40 63 21 115/58 100 Mask 10 02/22/17 12:30 36 60 16 115/62 100 Mask 10 Physical Exam General Appearance: WD/WN, no apparent distress Eyes: normal inspection, PERRL, EOMI ENT: normal ENT inspection, hearing grossly normal, TMs normal Neck: supple, no adenopathy, thyroid normal, no JVD Respiratory/Chest: chest non-tender, lungs clear, normal breath sounds Cardiovascular: regular rate, rhythm, no edema, no gallop, no JVD, no murmur Abdomen: normal bowel sounds, non tender, soft Extremities: normal range of motion, non-tender Neurologic/Psychiatric: airport manager II-XII nml as tested, normal mood/affect, oriented x 3 Skin: normal color Laboratory Results Last 24 Hours Test 02/22/17 13:32 02/23/17 06:14 Bedside Glucose 100 mg/dl White Blood Count 11.64 K/uL Red Blood Count 4.09 M/uL Hemoglobin 12.3 g/dL Hematocrit 36.0 % Mean Corpuscular Volume 88.0 fL Mean Corpuscular Hemoglobin 30.1 pg Mean Corpuscular Hemoglobin Concent 34.2 g/dl Platelet Count 256 K/uL Mean Platelet Volume 9.4 fL Neutrophils (%) (Auto) 80.1 % Lymphocytes (%) (Auto) 12.3 % Monocytes (%) (Auto) 5.6 % Eosinophils (%) (Auto) 1.5 % Basophils (%) (Auto) 0.2 % Neutrophils # (Auto) 9.34 K/uL Lymphocytes # (Auto) 1.43 K/uL Monocytes # (Auto) 0.65 K/uL Eosinophils # (Auto) 0.17 K/uL Basophils # (Auto) 0.02 K/uL RDW Standard Deviation 42.3 fL RDW Coefficient of Variation 13.1 % Immature Granulocyte % (Auto) 0.3 % Immature Granulocyte # (Auto) 0.03 K/uL Sodium Level 138 mmol/L Potassium Level 3.5 mmol/L Chloride Level 101 mmol/L Carbon Dioxide Level 30 mmol/L Anion Gap 7.0 mmol/L Blood Urea Nitrogen 13 mg/dl Creatinine 1.10 mg/dl Est Creatinine Clear Calc Drug Dose 55.6 ml/min Estimated GFR () 64.5 Estimated GFR (Non- 55.7 BUN/Creatinine Ratio 11.6 Random Glucose 96 mg/dl Calcium Level 8.9 mg/dl Magnesium Level 2.5 mg/dl Assessment and Plan Coronary artery disease status post 3 stents placed in May 2016 as noted above Peripheral vascular disease-75% stenosis of the right common iliac artery and 50 % stenosis of the left common iliac artery IBS Obstructive sleep apnea-questionable compliance with CPAP at home Fibromyalgia Chronic pancreatitis Feels well. No cardio resp symptoms. Resume Plavix. Cont ASA, BB, Statin. BP improved. OK to resume Cozaar and thiazide. On Creon for chr.pancreatitis. Follow up with PCP in one week. Ok for dc from medical standpt.
[2017-02-23] MEDS: METOPROLOL TARTRATE 50 MG TAB PO SCH (08:22)
[2017-02-23] MEDS: PANTOprazole SOD 40 MG TAB PO SCH (08:22)
[2017-02-23 08:42] VITALS: BP 91/50; PULSE 68; TEMP 36.9; O2SAT 92
[2017-02-23] MEDS ORDERED: ISOSORBIDE MONONITRATE 60 MG TABCR PO SCH (09:00)
[2017-02-23] MEDS ORDERED: POTASSIUM CHLORIDE 20 MEQ TABCR PO SCH (09:00)
[2017-02-23] MEDS ORDERED: LOSARTAN POTASSIUM 50 MG TAB PO SCH (09:00)
[2017-02-23] MEDS ORDERED: ASPIRIN 81 MG ECTAB PO SCH (09:00)
[2017-02-23 09:31] VITALS: BP 100/61; PULSE 61; TEMP 36.8; O2SAT 92
--- NOTE | 2017-02-23 10:44 | Anesthesiology Progress Note ---
Anesthesia Post Op Note Date & Time Feb 23, 2017 at 10:43 Vital Signs Pain Intensity: 6.0 Vital Signs Past 12 Hours Date Time Temp Pulse Resp B/P Pulse Ox O2 Delivery O2 Flow Rate FiO2 02/23/17 09:31 36.8 61 20 100/61 92 02/23/17 08:42 36.9 68 16 92 Room Air 02/23/17 04:00 92 Room Air 02/23/17 03:48 36.9 68 16 91/50 92 Room Air 02/23/17 00:05 36.5 58 16 92/52 98 Room Air 02/22/17 23:59 Room Air Notes Mental Status: alert / awake / arousable, participated in evaluation Pt Amnestic to Procedure: Yes Nausea / Vomiting: adequately controlled Pain: adequately controlled Airway Patency, RR, SpO2: stable & adequate BP & HR: stable & adequate Hydration State: stable & adequate Anesthetic Complications: no major complications apparent
== END 2017-02-23 08:20 | disposition home or self-care (01) ==
LOC: ENRESERVTM → ENRESERVDT → C.ACU 07:19 → C.2T 10:21
PROVIDERS: ADMIT Obstetrics & Gynecology; ATTEND Obstetrics & Gynecology
DX: D27.0 Benign neoplasm of right ovary (principal); K66.0 Peritoneal adhesions (postprocedural) (postinfection); I25.10 Atherosclerotic heart disease of native coronary artery without angina pectoris; I73.9 Peripheral vascular disease, unspecified; G47.33 Obstructive sleep apnea (adult) (pediatric); K21.9 Gastro-esophageal reflux disease without esophagitis; M79.7 Fibromyalgia; K86.1 Other chronic pancreatitis; I25.2 Old myocardial infarction; Z79.82 Long term (current) use of aspirin; Z90.49 Acquired absence of other specified parts of digestive tract; Z82.5 Family history of asthma and other chronic lower respiratory diseases; Z84.1 Family history of disorders of kidney and ureter; Z82.49 Family history of ischemic heart disease and other diseases of the circulatory system; Z80.0 Family history of malignant neoplasm of digestive organs; Z83.3 Family history of diabetes mellitus; Z80.1 Family history of malignant neoplasm of trachea, bronchus and lung
CPT/HCPCS: 58661; S2900

== ENCOUNTER → 2017-03-12 | Outpatient (CLI) | payer OTHER ==
[~2017-03-12] MED LIST changes: -FENT25DI2 TD; -LACTATED RINGER'S 1000ML 1,000 ML IV SCH; +OXYC-57 PO
[2017-03-12 17:12] LABS: BLOOD UREA NITROGEN 15 mg/dl (7-18); BUN/CREATININE RATIO 13.2 (10-20); CALCIUM 9.6 mg/dl (8.5-10.1); CARBON DIOXIDE 30 mmol/L (21-32); CHLORIDE 104 mmol/L (98-107); GLUCOSE 92 mg/dl (70-99); POTASSIUM 3.4 mmol/L (3.5-5.1); SODIUM 139 mmol/L (136-145)
== END | disposition home or self-care (01) ==
LOC: C.LABPBG 11:04
PROVIDERS: ATTEND Internal Medicine
DX: E87.6 Hypokalemia (principal)

== ENCOUNTER → 2017-03-15 | Outpatient (CLI) | payer OTHER ==
--- NOTE | 2017-03-16 13:19 | MAMMOGRAPHY REPORT ---
BILATERAL DIGITAL SCREENING MAMMOGRAM TOMOSYNTHESIS WITH CAD: 03/15/2017 CLINICAL HISTORY: Routine screening. Patient has no complaints. TECHNIQUE: Breast tomosynthesis in addition to standard 2D mammography was performed. Current study was also evaluated with a Computer Aided Detection (CAD) system. COMPARISON: Comparison is made to exams dated: 11/06/2015 mammogram, 11/20/2014 ultrasound, 11/20/20 14 mammogram, 08/30/2014 mammogram - [facility], 09/27/2012 mammogram, and 1 mammogram - [facility]-. BREAST COMPOSITION: The tissue of both breasts is heterogeneously dense, which may obscure small ma sses. FINDINGS: There are scattered benign-appearing calcifications in the breasts. No new suspicious mas s, architectural distortion or cluster of microcalcifications is seen. IMPRESSION: ACR BI-RADS CATEGORY 1: NEGATIVE There is no mammographic evidence of malignancy. A 1 year screening mammogram is recommended. The p atient will receive written notification of the results. Approximately 10% of breast cancers are not detected with mammography. A negative mammographic repor t should not delay biopsy if a clinically suggestive mass is present. Kristy Cristobal M.D. ay/:03/15/2017 17:37:02 Layer Up: Leydi Walton, [facility] letter sent: Normal 1/2 BI-RADS Code: ACR BI-RADS Category 1: Negative
== END | disposition home or self-care (01) ==
LOC: C.MAMM 07:34
PROVIDERS: ATTEND Obstetrics & Gynecology
DX: Z12.31 Encounter for screening mammogram for malignant neoplasm of breast (principal)

== ENCOUNTER → 2017-03-23 | Outpatient (CLI) | payer OTHER ==
[2017-03-23 18:28] LABS: BLOOD UREA NITROGEN 27 mg/dl (7-18); BUN/CREATININE RATIO 20.6 (10-20); CALCIUM 9.6 mg/dl (8.5-10.1); CARBON DIOXIDE 25 mmol/L (21-32); CHLORIDE 103 mmol/L (98-107); GLUCOSE 98 mg/dl (70-99); POTASSIUM 4.5 mmol/L (3.5-5.1); SODIUM 135 mmol/L (136-145)
== END | disposition home or self-care (01) ==
LOC: C.LABPBG 11:34
PROVIDERS: ATTEND Internal Medicine
DX: E87.6 Hypokalemia (principal)

== ENCOUNTER → 2017-03-31 | Outpatient (CLI) | payer OTHER ==
[2017-03-31 13:06] LABS: BLOOD UREA NITROGEN 24 mg/dl (7-18); BUN/CREATININE RATIO 17.4 (10-20); CARBON DIOXIDE 27 mmol/L (21-32); CHLORIDE 104 mmol/L (98-107); GLUCOSE 111 mg/dl (70-99); POTASSIUM 3.9 mmol/L (3.5-5.1); SODIUM 138 mmol/L (136-145)
[2017-03-31 13:53] LABS: CALCIUM 9.7 mg/dl (8.5-10.1)
== END | disposition home or self-care (01) ==
LOC: C.LABPBG 09:46
PROVIDERS: ATTEND Internal Medicine
DX: I10 Essential (primary) hypertension (principal); E87.6 Hypokalemia

== ENCOUNTER → 2017-04-16 | Outpatient (CLI) | payer OTHER ==
[2017-04-16 13:48] LABS: BLOOD UREA NITROGEN 17 mg/dl (7-18); BUN/CREATININE RATIO 18.2 (10-20); CALCIUM 9.2 mg/dl (8.5-10.1); CARBON DIOXIDE 22 mmol/L (21-32); CHLORIDE 112 mmol/L (98-107); CHOLESTEROL 168 mg/dl (0-200); CREATININE 0.96 mg/dl (0.60-1.20); GLUCOSE 101 mg/dl (70-99); POTASSIUM 4.3 mmol/L (3.5-5.1); SODIUM 144 mmol/L (136-145)
[2017-04-16 13:51] LABS: CHOLESTEROL/HDL RATIO 3.9; HDL CHOLESTEROL 43 mg/dl; LDL CHOLESTEROL CALCULATED 63 mg/dl; TRIGLYCERIDES 311 mg/dl (0-150); VERY LOW DENSITY LIPOPROT CALC 62 mg/dl
== END | disposition home or self-care (01) ==
LOC: C.LABPBG 07:39
PROVIDERS: ATTEND Internal Medicine
DX: Z00.00 Encounter for general adult medical examination without abnormal findings (principal); I10 Essential (primary) hypertension

== ENCOUNTER → 2017-05-06 | Outpatient (CLI) | payer OTHER ==
[2017-05-06 17:40] LABS: ALT/SGPT 21 U/L (12-78); AST/SGOT 11 U/L (15-37); BLOOD UREA NITROGEN 21 mg/dl (7-18); CALCIUM 9.1 mg/dl (8.5-10.1); CARBON DIOXIDE 26 mmol/L (21-32); CHLORIDE 108 mmol/L (98-107); GLUCOSE 105 mg/dl (70-99); MAGNESIUM 2.4 mg/dl (1.8-2.4); POTASSIUM 3.6 mmol/L (3.5-5.1); SODIUM 142 mmol/L (136-145)
[2017-05-06 17:51] LABS: ALB/GLOB RATIO 1.1 (0.9-2); ALKALINE PHOSPHATASE 96 U/L (45-117)
[2017-05-06 20:57] LABS: LYME DISEASE AB IGG NEG (NEG); LYME DISEASE AB IGM NEG (NEG)
== END | disposition home or self-care (01) ==
LOC: C.LABPBG 14:32
PROVIDERS: ATTEND Internal Medicine
DX: T14.8 Other injury of unspecified body region (principal); W57.XXXA Bitten or stung by nonvenomous insect and other nonvenomous arthropods, initial encounter

== ENCOUNTER → 2017-06-30 | Outpatient (CLI) | payer OTHER ==
[2017-06-30 18:02] LABS: ALT/SGPT 22 U/L (12-78); AST/SGOT 15 U/L (15-37); BLOOD UREA NITROGEN 13 mg/dl (7-18); BUN/CREATININE RATIO 13.3 (10-20); CARBON DIOXIDE 26 mmol/L (21-32); CHLORIDE 108 mmol/L (98-107); CREATININE 0.97 mg/dl (0.60-1.20); GLUCOSE 99 mg/dl (70-99); POTASSIUM 3.9 mmol/L (3.5-5.1); SODIUM 140 mmol/L (136-145)
[2017-06-30 18:05] LABS: ALB/GLOB RATIO 1.1 (0.9-2); ALKALINE PHOSPHATASE 99 U/L (45-117)
[2017-07-01 06:42] LABS: ESTIMATED AVERAGE GLUCOSE 128 mg/dl; HA1C FLAG Normal (Normal)
== END | disposition home or self-care (01) ==
LOC: C.LABPBG 11:44
PROVIDERS: ATTEND Internal Medicine
DX: R73.03 Prediabetes (principal)

== ENCOUNTER → 2017-09-27 | Outpatient (CLI) | payer OTHER ==
--- NOTE | 2017-09-27 07:54 | DIAGNOSTIC IMAGING REPORT ---
CT SCAN OF THE PARANASAL SINUSES CLINICAL HISTORY: Recurrent sinusitis. COMPARISON STUDY: No priors. TECHNIQUE: High-resolution CT scan of the paranasal sinuses is performed. Images are reviewed in the axial, sagittal, and coronal planes. IV contrast was not administered for this examination. A dose lowering technique was utilized adhering to the principles of ALARA. CT DOSE: 661.93 mGy.cm FINDINGS: Maxillary antra: Clear bilaterally. Anterior ethmoid sinuses: Clear. Posterior ethmoid sinuses: Clear. Sphenoid sinuses: Clear. Frontal sinuses: Clear. Ostiomeatal complexes: Patent bilaterally. Frontoethmoidal and sphenoethmoidal recesses: Patent bilaterally. Carotid arteries: The carotid arteries are covered and without septal attachments. Ethmoid roofs: There is slightly asymmetric elevation of the left ethmoid roof as compared to the right. Nasal turbinates: Normal in appearance. Nasal septum: There is leftward deviation of the bony nasal septum. Optic nerves: Covered. Orbits: The bony orbits are intact. Orbital contents are normal in appearance. Calvarium: The imaged calvarium is normal in appearance. A small bone island is incidentally noted in the clivus. Mastoid air cells: Well pneumatized. Brain parenchyma: Partially visualized brain parenchyma is within normal limits. IMPRESSION: No paranasal sinus disease is identified. Electronically signed by: Horacio Quintero M.D. 09/27/2017 7:53 AM Dictated Date/Time: 09/27/2017 7:36 AM
== END | disposition home or self-care (01) ==
LOC: C.CTS 07:07
PROVIDERS: ATTEND Family Medicine
DX: J32.9 Chronic sinusitis, unspecified (principal)

== ENCOUNTER → 2017-11-18 | Outpatient (CLI) | payer OTHER | END | disposition home or self-care (01) | LOC: C.LABPBG 07:29 | PROVIDERS: ATTEND Internal Medicine | DX: E56.9 Vitamin deficiency, unspecified (principal) ==

== ENCOUNTER → 2018-03-02 | Outpatient (CLI) | payer OTHER | END | disposition home or self-care (01) | LOC: C.LABSPEC 11:46 | PROVIDERS: ATTEND Obstetrics & Gynecology | DX: N90.89 Other specified noninflammatory disorders of vulva and perineum (principal); R39.9 Unspecified symptoms and signs involving the genitourinary system ==

== ENCOUNTER → 2018-03-17 | Outpatient (CLI) | payer OTHER ==
[~2018-03-17] MED LIST changes: -ASPEC81 PO; +ASPI-320 PO; +POTA-639 PO; -POTA20TA16 PO
--- NOTE | 2018-03-21 08:08 | MAMMOGRAPHY REPORT ---
BILATERAL DIGITAL SCREENING MAMMOGRAM TOMOSYNTHESIS WITH CAD: 03/17/2018 CLINICAL HISTORY: Routine screening. Patient has no complaints. TECHNIQUE: Breast tomosynthesis in addition to standard 2D mammography was performed. Current study was also evaluated with a Computer Aided Detection (CAD) system. COMPARISON: Comparison is made to exams dated: 03/15/2017 mammogram, 11/20/2014 ultrasound, 11/06/2015 mammogram, 11/20/2014 mammogram, 08/30/2014 mammogram - [facility], and 09/27/2012 mammogram - [facility]-. BREAST COMPOSITION: The tissue of both breasts is heterogeneously dense, which may obscure small mas ses. FINDINGS: No suspicious masses, calcifications, or areas of architectural distortion are noted in ei ther breast. There has been no significant interval change compared to prior exams. Scattered bilater al benign-appearing calcifications are not significantly changed. IMPRESSION: ACR BI-RADS CATEGORY 2: BENIGN There is no mammographic evidence of malignancy. A 1 year screening mammogram is recommended. The pa tient will receive written notification of the results. Approximately 10% of breast cancers are not detected with mammography. A negative mammographic report should not delay biopsy if a clinically suggestive mass is present. Radhika Romano M.D. ah/:03/17/2018 15:22:20 Video Game Script Writer: Apolinar Antony M, [facility] letter sent: Normal 1/2 BI-RADS Code: ACR BI-RADS Category 2: Benign
== END | disposition home or self-care (01) ==
LOC: C.MAMM 12:51
PROVIDERS: ATTEND Obstetrics & Gynecology
DX: Z12.31 Encounter for screening mammogram for malignant neoplasm of breast (principal)

== ENCOUNTER → 2018-07-01 | Outpatient (CLI) | payer OTHER ==
[2018-07-01 13:07] LABS: BASO % 0.5 %; BASO ABS # 0.04 K/uL (0-0.2); EOS ABS # 0.15 K/uL (0-0.5); HEMATOCRIT 45.4 % (37-47); HEMOGLOBIN 15.2 g/dL (12.0-16.0); IG# 0.01 K/uL (0.00-0.02); LYMPH % 26.9 %; LYMPH ABS # 2.01 K/uL (1.2-3.4); MEAN CELL VOLUME 88.5 fL (80-100); MEAN CORPUSCULAR HEMOGLOBIN 29.6 pg (25-34); MEAN CORPUSCULAR HGB CONC 33.5 g/dl (32-36); MEAN PLATELET VOLUME 10.3 fL (7.4-10.4); MONO % 8.6 %; MONO ABS # 0.64 K/uL (0.11-0.59); NEUT % 61.9 %; NEUT ABS # 4.62 K/uL (1.4-6.5); PLATELET COUNT 323 K/uL (130-400); RED CELL DISTRIBUTION WIDTH CV 13.3 % (11.5-14.5); RED CELL DISTRIBUTION WIDTH SD 43.2 fL (36.4-46.3); WHITE BLOOD COUNT 7.47 K/uL (4.8-10.8)
[2018-07-01 13:50] LABS: ALBUMIN 3.9 gm/dl (3.4-5.0); ALKALINE PHOSPHATASE 125 U/L (45-117); ALT/SGPT 17 U/L (12-78); AST/SGOT 15 U/L (15-37); BLOOD UREA NITROGEN 21 mg/dl (7-18); CALCIUM 9.5 mg/dl (8.5-10.1); CARBON DIOXIDE 25 mmol/L (21-32); CHOLESTEROL 338 mg/dl (0-200); CREATININE 0.98 mg/dl (0.60-1.20); GLUCOSE 95 mg/dl (70-99); SODIUM 137 mmol/L (136-145)
[2018-07-01 13:56] LABS: HEMOGLOBIN A1C 6.3 % (4.5-5.6)
== END | disposition home or self-care (01) ==
LOC: C.LABPBG 07:57
PROVIDERS: ATTEND Internal Medicine
DX: I10 Essential (primary) hypertension (principal); E78.5 Hyperlipidemia, unspecified; I73.9 Peripheral vascular disease, unspecified; I25.10 Atherosclerotic heart disease of native coronary artery without angina pectoris; R09.89 Other specified symptoms and signs involving the circulatory and respiratory systems; R73.03 Prediabetes; G47.33 Obstructive sleep apnea (adult) (pediatric); E56.9 Vitamin deficiency, unspecified